=== PATIENT | female | born 1950 | race Caucasian/White ===

== ENCOUNTER 2018-03-07 12:07 | Day surgery (SDC) | payer MEDICARE, OTHER ==
[~2018-03-07 12:07] MED LIST: ACETAMINOPHEN 1,000 MG/100 ML RTUPB IV ONE; CLINDAMYCIN 600 MG/D5W RTU 600 MG/50 ML RTUPB IV PRN; DEXAMETHASONE SOD PHOSPHATE INJ 4 MG/1 ML VIAL ONE; FENTANYL CITRATE INJ/PF 100 MCG/2 ML AMPUL ONE; LIDOCAINE 2% INJ-PF (20 MG/ML) 10 ML AMPUL ONE; MIDAZOLAM 2 MG/2 ML INJ ONE; ONDANSETRON HCL INJ/PF 4 MG/2 ML SDV ONE; PROPOFOL INJ 200 MG/20 ML VIAL IV ONE
[2018-03-07] MEDS ORDERED: BUPIVACAINE HCL 0.5 % INJ/PF 30 ML SDV ONE (12:20)
[2018-03-07] MEDS ORDERED: CLINDAMYCIN 600 MG/D5W RTU 600 MG/50 ML RTUPB IV ONE (12:29)
[2018-03-07 12:32] LABS: HEMATOCRIT 43.2 % (36.0-47.0); HEMOGLOBIN 14.9 g/dL (12.0-15.5); MEAN CORPUSCULAR HEMOGLOBIN 31.4 pg (27.0-33.4); MEAN CORPUSCULAR HGB CONC 34.4 g/dL (32.0-36.0); MEAN CORPUSCULAR VOLUME 91 fl (80-97); PLATELET COUNT 271 10^3/uL (150-450); RED BLOOD COUNT 4.74 10^6/uL (3.72-5.28); RED CELL DISTRIBUTION WIDTH 14.4 % (11.5-14.0); WHITE BLOOD COUNT 8.9 10^3/uL (4.0-10.5)
[2018-03-07 12:50] LABS: ANION GAP 10 (5-19); BLOOD UREA NITROGEN 15 mg/dL (7-20); CALCIUM 9.4 mg/dL (8.4-10.2); CARBON DIOXIDE 28 mmol/L (22-30); CHLORIDE 105 mmol/L (98-107); GLUCOSE 105 mg/dL (75-110); POTASSIUM 4.1 mmol/L (3.6-5.0); SODIUM 142.8 mmol/L (137-145)
--- NOTE | 2018-03-07 12:53 | RADIOLOGY REPORT (SQ) ---
EXAM DESCRIPTION: CHEST SINGLE VIEW COMPLETED DATE/TIME: 03/07/2018 12:44 pm REASON FOR STUDY: PREOP COMPARISON: None. EXAM PARAMETERS: NUMBER OF VIEWS: One view. TECHNIQUE: Single frontal radiographic view of the chest acquired. RADIATION DOSE: NA LIMITATIONS: None. FINDINGS: LUNGS AND PLEURA: No opacities, masses or pneumothorax. No pleural effusion. MEDIASTINUM AND HILAR STRUCTURES: No masses. Contour normal. HEART AND VASCULAR STRUCTURES: Heart normal in size. Normal vasculature. BONES: No acute findings. HARDWARE: None in the chest. OTHER: No other significant finding. IMPRESSION: NO ACUTE RADIOGRAPHIC FINDING IN THE CHEST. TECHNICAL DOCUMENTATION: JOB ID: [id number] [employer]- All Rights Reserved Reading location - IP/workstation name: [email or web address]
[2018-03-07] MEDS ORDERED: PROMETHAZINE HCL INJ 25 MG/1 ML VIAL IV PRN ×2 (14:54)
[2018-03-07] MEDS ORDERED: DIPHENHYDRAMINE HCL 50 MG/ML VIAL IV PRN (14:54)
[2018-03-07] MEDS ORDERED: FENTANYL CITRATE INJ/PF 100 MCG/2 ML AMPUL IV PRN ×3 (14:54)
[2018-03-07] MEDS ORDERED: MORPHINE SULFATE 10 MG/ML INJ IV PRN (14:54)
[2018-03-07] MEDS ORDERED: MEPERIDINE HCL/PF INJ 25 MG/1 ML DISP.SYRIN IV PRN (14:54)
[2018-03-07] MEDS ORDERED: ONDANSETRON HCL INJ/PF 4 MG/2 ML SDV IV PRN ×2 (14:54→16:48)
--- NOTE | 2018-03-07 16:16 | RADIOLOGY REPORT (SQ) ---
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 FLUOROSCOPY TIME: 20 seconds. 5 images saved to PACS. TECHNIQUE: Intra-operative images acquired during surgical procedure to evaluate progress. NUMBER OF IMAGES: 5 images. LIMITATIONS: None. FINDINGS: Images of the hand acquired during the procedure. IMPRESSION: IMAGE(S) OBTAINED DURING PROCEDURE. COMMENT: Quality ID 145: Final reports for procedures using fluoroscopy that document radiation exp osure indices, or exposure time and number of fluorographic images (if radiation exposure indices are not available) Please consult full operative report of the attending physician for description of the procedure. TECHNICAL DOCUMENTATION: JOB ID: [id number] [employer]- All Rights Reserved Reading location - IP/workstation name: [facility]-[email or web address]
--- NOTE | 2018-03-07 16:16 | RADIOLOGY REPORT (SQ) ---
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 FLUOROSCOPY TIME: 20 seconds. 5 images saved to PACS. TECHNIQUE: Intra-operative images acquired during surgical procedure to evaluate progress. NUMBER OF IMAGES: 5 images. LIMITATIONS: None. FINDINGS: Images of the hand acquired during the procedure. IMPRESSION: IMAGE(S) OBTAINED DURING PROCEDURE. COMMENT: Quality ID 145: Final reports for procedures using fluoroscopy that document radiation exp osure indices, or exposure time and number of fluorographic images (if radiation exposure indices are not available) Please consult full operative report of the attending physician for description of the procedure. TECHNICAL DOCUMENTATION: JOB ID: [id number] [employer]- All Rights Reserved Reading location - IP/workstation name: [facility]-RR
[2018-03-07] MEDS ORDERED: HYDROMORPHONE HCL INJ/PF 2 MG/ML AMPULE IV PRN (16:48)
[2018-03-07] MEDS ORDERED: OXYCODONE-ACETAMINOPHEN 5-325 MG TABLET PO PRN (16:48)
--- NOTE | 2018-03-07 16:51 | Discharge Summary ---
Discharge Summary (SDC) - Discharge Final Diagnosis: Right thumb CMC arthritis, MCP joint hyperlaxity, abductor pollicis longus/ extensor pollicis brevis laceration, superficial nerve laceration Date of Surgery: 03/07/18 Discharge Date: 03/07/18 Condition: Good Treatment or Instructions: Schedule Follow Up w/ Dr. Piter Barker @ [facility] to be seen in 10-14 days or as scheduled [place]: [place]: [place]: Ice and elevate Keep splint clean/dry/intact. If your fingers become numb please unwrap the Evangelist wrap but leave the splint in place, if the sensation does not return within 30 minutes please return to the emergency department. May begin finger range of motion attempting to make full fist. Please use ibuprofen (Motrin or Advil) 600-800 mg every 8 hours as needed for pain or fever DO NOT TAKE w/ TORADOL may use once TORADOL complete. You may also use acetaminophen (Tylenol) 1000 mg every 4-6 hours as needed for pain or fever. Please be aware that many medications contain acetaminophen, do not exceed a total of 1000 mg of acetaminophen every 6 hours. If ibuprofen and acetaminophen are not sufficient for your pain you may take the Percocet/[place]. Please be aware that the Percocet/[place] does contain Tylenol. Stool softener of choice when on pain medication. Prescriptions: Oxycodone HCl/Acetaminophen [Percocet 7.5-325 mg Tablet] 1 each PO Q6 PRN #25 tablet PRN Reason: Referrals: [facility] [Primary Care Provider] - Discharge Diet: As Tolerated Respiratory Treatments at Home: Deep Breathing/Coughing Discharge Activity: No Lifting Over 10 Pounds, No Lifting/Push/Pulling Report the Following to Your Physician Immediately: Fever over 101 Degrees, Unusual Bleeding, Redness, Swelling, Warmth
--- NOTE | 2018-03-07 17:00 | Operative Report ---
Operative Report DATE OF SURGERY: 03/07/18 PREOPERATIVE DIAGNOSIS: Right thumb CMC arthritis, MCP joint hyperlaxity, abductor pollicis longus/extensor pollicis brevis laceration, superficial nerve laceration POSTOPERATIVE DIAGNOSIS: Same OPERATION: 1. Right thumb CMC arthroplasty with trapezial excision. 2. MCP joint capsulodesis. 3. Repair of superficial radial nerve with placement of nerve wrap SURGEON: PETE MANE ANESTHESIA: GA COMPLICATIONS: None ESTIMATED BLOOD LOSS: Minimal PROCEDURE: Indication for above procedure: 68-year-old female who sustained a laceration to the base of her right thumb. After which she was unable to fully abductor thumb and numbness along the dorsal aspect. X-rays demonstrate concomitant CMC arthritis. At that point I discussed treatment options the patient and son including operative versus nonoperative intervention. After discussing risks and benefits joint decision was made to proceed with concomitant nerve repair with possible extensor tendon repair and CMC arthroplasty. Procedure In Detail: Patient was seen and evaluated in the preoperative holding area. The RIGHT upper extremity was initialized and marked. Patient received 2g of Ancef IV for bacterial prophylaxis. Patient was taken back to the operative room where transferred to the operative table and placed under general anesthesia. Once they were adequately anesthetized and a nonsterile tourniquet was placed on the upper extremity. A surgical team debriefing was performed ensuring all instrumentation was available, the surgical procedure was discussed with possible concerns reviewed. The upper extremity was prepped with chlorhexidine and alcohol and draped in a sterile fashion. A timeout was done identifying correct patient, procedure and extremity everyone in attendance agree with this and verbalized no concerns. The extremity was exsanguinated the tourniquet was inflated to 200 mmHg. A longitudinal skin incision was made in line with the first dorsal compartment. There was complete lacerations of the APL and EPB along with small branches of the superficial radial nerve and a large branch which was more radial. An additional branch of the superficial nerve remained intact along the ulnar border at the level of the second metacarpal. I then identified the radial artery which was protected throughout the entirety of the case with a Dowell elevator. A T-shaped capsulotomy was made at the CMC joint of the thumb. A freer elevator was used to daisha out the CMC joint, fluoroscopy confirmed the thumb cmc joint placement. The capsule was released off of the trapezium circumferentially. The FCR insertion volarly was protected. Using a rongeur the trapezium was excised as one unit. I then removed any residual loose bodies and bone fragments. I then inspected the STT joint. There was no advanced degenerative changes of the STT joint. K wire was placed from the base of the first metacarpal to the proximal third of the second metacarpal C-arm fluoroscopy was obtained confirming appropriate placement. The FiberWire and tight rope button were advanced. Under C-arm fluoroscopy I confirmed appropriate placement and bicortical excision on both the arm and index metacarpal. My patent legal assistant then held the hand and mild radial abduction, CMC extension to avoid over tensioning the first-second CMC joints. The button on the index metacarpal was then secured visually. Range of motion was performed of the CMC joint to ensure adequate tension but not over tension. Patient had full passive opposition to the base of the small finger. Once adequate tension was confirmed this was completed with 3 additional knots. The FiberWire was then cut and C-arm fluoroscopy was obtained confirming stability of the CMC joint without evidence of subsidence. Wound was irrigated with normal saline. Chevron shaped skin incision was made over the thumb A1 maia blunt dissection performed radial and ulnar neurovascular bundles were identified and retracted. The A1 maia was released and the FPL tendon retracted to identify the underlying volar plate. The volar plate was then elevated from the metacarpal. Under direct visualization a Arthrex micro suture anchor was placed and a horizontal mattress suture placed through the volar plate while my patent legal assistant held the digit in approximately 10 degrees of flexion. A 0.045 K wire was then placed across the MP joint to maintain alignment. Wound was irrigated with normal saline. Skin was closed with interrupted 4-0 nylon suture. Inspecting the EPB and APL tendons given the longevity and scarring of the APL tendon I was unable to repair the EPL tendon and thus I tenodesed the EPL tendon to the overlying CMC joint capsule with 3-0 Ethibond suture which provided extension movement arm. With tenodesis patient did have a thumb abduction and flexion of the CMC joint. The main portions of the superficial radial nerve were then identified proximally and distally and debrided back to normal appearing fascicles. The large branch of the superficial radial nerve was then reapproximated with 8-0 nylon suture and reinforced with Tisseel fibrin glue a size 4 mm nerve wrap was placed across the repair site. There was no tension after nerve repair and no tension with wrist or thumb range of motion. Wound was then copiously irrigated with normal saline. Tourniquet was deflated. Any peripheral bleeding was controlled with bipolar cautery. No evidence of radial artery involvement. The subcutaneous tissues were closed with interrupted 4-0 Monocryl suture. Skin was closed with running horizontal mattress 4-0 nylon suture. 30 cc of 0.5% Marcaine without epinephrine was injected for postoperative pain control. Patient was extubated and transferred to the operative stretcher. There was no intraoperative complications patient tolerated procedure well with stable to PACU. Postoperative plan: Patient will continue the splint for 2 weeks. Patient will then be transitioned to a cast for an additional 2 weeks. They will then begin occupational therapy at 4 weeks and will be fitted for a thermoplastic splint at that time.
[2018-03-07] MEDS: FENTANYL CITRATE INJ/PF 100 MCG/2 ML AMPUL ONE ×2 (17:05→17:10)
[2018-03-07] MEDS ORDERED: OXYCODONE-ACETAMINOPHEN 5-325 MG TABLET ONE (17:44)
[2018-03-07 18:54] VITALS: BP 133/66
--- NOTE | 2018-03-07 19:25 | EKG REPORT ---
SEVERITY:- ABNORMAL ECG - SINUS RHYTHM PROBABLE ANTEROSEPTAL INFARCT, OLD : Confirmed by: Paul Michael MD 07-Mar-2018 19:24:39
== END 2018-03-07 18:50 | disposition home or self-care (01) ==
LOC: OROUT 12:07
PROVIDERS: ATTEND Orthopaedic Surgery
DX: S66.221A Laceration of extensor muscle, fascia and tendon of right thumb at wrist and hand level, initial encounter (principal); S64.21XA Injury of radial nerve at wrist and hand level of right arm, initial encounter; S61.011A Laceration without foreign body of right thumb without damage to nail, initial encounter; W26.9XXA Contact with unspecified sharp object(s), initial encounter; M18.11 Unilateral primary osteoarthritis of first carpometacarpal joint, right hand; M25.341 Other instability, right hand; M25.531 Pain in right wrist; K21.9 Gastro-esophageal reflux disease without esophagitis; Z79.01 Long term (current) use of anticoagulants; Z79.899 Other long term (current) drug therapy; Z01.818 Encounter for other preprocedural examination; Z88.0 Allergy status to penicillin; Z88.2 Allergy status to sulfonamides; Z79.1 Long term (current) use of non-steroidal anti-inflammatories (NSAID); Z79.891 Long term (current) use of opiate analgesic; Z87.892 Personal history of anaphylaxis
CPT/HCPCS: 26516; 25447; 36415; 85027; 80048; 71045; 73130; 93005; 93010; 64910; C1713 ×2; C9250; J2250; J3490 ×2; J1100; J3010; A9270; J2405; J2704; J0131; 01830